=== PATIENT | female | born 1975 | race Caucasian/White ===

== ENCOUNTER 2016-10-01 07:19 | Day surgery (SDC) | payer MEDICARE, MEDICAID ==
[~2016-10-01 07:19] MED LIST: Dextrose 5%-Lactated Ringers 1,000 ML IV SCH; Midazolam 1 MG/ML 2 ML SDV ONE; Propofol 200 MG/20 ML SDV ONE; fentaNYL 100 MCG/2 ML SDV ONE
[2016-10-01] MEDS ORDERED: Glycopyrrolate 0.2 MG/ML 2 ML SYRINGE IVPUSH ONE (07:30)
[2016-10-01 11:36] VITALS: BP 106/77
--- NOTE | 2016-10-08 10:45 | OR ---
DATE OF PROCEDURE: 10/01/2016 PREOPERATIVE DIAGNOSIS: Dysphagia associated with weight regain, status post Lawrence-en-Y gastric bypass. 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 OPERATIVE PROCEDURE: Upper gastrointestinal endoscopy with dilation gastrojejunostomy (02943). ANESTHESIA: IV sedation. INDICATION FOR PROCEDURE: This is a 41-year-old status post a Lawrence-en-Y gastric bypass done as an open approach by Dr. Enrique in the . The patient has had a complicated postoperative course including intraabdominal abscess. Recently, the patient has had both problems with some weight regain as well as dysphagia. She has undergone 2 upper GI endoscopy with dilation as per the GI people in [place] and was recently referred here for further evaluation and treatment. To evaluate the patient's pouch size, which I suspect will be quite large and contributing to her problems in turns of high acid output as well as a degree of stricturing of the gastrojejunostomy with upper GI endoscopy with biopsies and/or dilation is to be undertaken. Potential risks including bleeding and perforation were discussed, and the patient wishes to proceed. DETAILS OF PROCEDURE: The patient was taken to the operating room and placed in a left lateral decubitus position. IV sedation was administered, after which the upper GI endoscope was passed orally through the length of the esophagus into the gastric pouch and from there through the gastrojejunostomy roughly 20 cm into the Lawrence limb. Findings included normal hypopharynx, larynx, upper esophageal sphincter. At the EG junction, there was some generalized reddening and edema consistent with the patient's history of reflux. The gastric pouch was itself generally slightly reddened. There was quite a bit of edema at the gastrojejunostomy along with a very mild stricture present. The pouch was measured at 11 cm from the gastrojejunostomy to the mucosal esophageal gastric junction. The scope was able to be passed through the anastomosis, which was in the most minimally strictured and the remaining portion of the visualized Lawrence limb was unremarkable. There were no marginal ulcers present. At this point, the gastrojejunostomy was dilated with a 54-Lithuanian balloon dilator. This did result in some slight increase in the diameter. No complications were noted and the procedure was then concluded. It would appear that the patients overall problems at this point are related to the very large pouch and aassociated mass increasing her acid output to a point that she is having both reflux symptoms as well as problems with inflammation at the gastrojejunostomy resulting in stricturing. She is status post truncal vagotomy, which was done routinely at that time per Dr. Enrique and this may also somehow be contributing to some impaired gastric emptying. The patient was taken to the recovery room in satisfactory condition. Postoperatively, after the patient had a long with her significant other discussing the result. We discussed this last week that if the pouch was noted to be quite large, the appropriate treatment would likely be open laparotomy with partial gastrectomy and Lawrence-en-Y reconstruction removing all the small amount of the gastric pouch present and do a fairly large anastomosis. Potential risks of that were all reviewed once again, and they wished to proceed. This procedure will be scheduled as soon as I get back from vacation on 10/19/2016. Kael Franklin MD /[id number]
== END 2016-10-01 11:20 | disposition home or self-care (01) ==
LOC: JP.SDS 07:19
PROVIDERS: ATTEND Surgery
PROC: 0D768ZZ Dilation of Stomach, Via Natural or Artificial Opening Endoscopic (ICD-10-PCS; principal; 2016-10-01)
DX: K91.89 Other postprocedural complications and disorders of digestive system (principal); Z98.84 Bariatric surgery status
CPT/HCPCS: 43245; J2250; J2704; J3010; J7042

== ENCOUNTER 2016-10-19 13:25 | Inpatient (IN) | payer MEDICARE, MEDICAID ==
[2016-10-23] MEDS: Gabapentin 300 MG Cap PO ONE ×2 (10:54→10:55)
[2016-10-23] MEDS ORDERED: Dextrose 5%-Lactated Ringers 1,000 ML IV SCH ×2 (11:00→17:15)
[2016-10-23] MEDS: Celecoxib 200 MG Cap PO ONE ×2 (11:00→19:30)
[2016-10-23] MEDS ORDERED: Scopolamine 1.5 MG Transdermal Patch TRDERM SCH (11:00)
[2016-10-23] MEDS ORDERED: Meropenem 500 MG SDV ONE (11:02)
[2016-10-23] MEDS ORDERED: Ketamine 500 MG/5 ML MDV IV SCH (12:00)
[2016-10-23] MEDS ORDERED: Ropivacaine 40 ML, Dexamethasone 8 MG, EPINEPHrine 0.4 MG, Sodium Chloride 0.9% 37.6 ML NERVRT SCH ×4 (12:00)
[2016-10-23] MEDS ORDERED: Propofol 200 MG/20 ML SDV ONE (12:15)
[2016-10-23] MEDS ORDERED: Ondansetron 4 MG/2 ML SDV ONE (12:15)
[2016-10-23] MEDS ORDERED: Dexamethasone 4 MG/ML SDV ONE (12:15)
[2016-10-23] MEDS ORDERED: Succinylcholine/Normal Saline 200 MG/10 ML Syringe ONE (12:15)
[2016-10-23] MEDS ORDERED: fentaNYL 250 MCG/5 ML SDV ONE (12:15)
[2016-10-23] MEDS ORDERED: Rocuronium 50 MG/5 ML Vial ONE (12:15)
[2016-10-23] MEDS ORDERED: Neostigmine Methylsulfate 1 MG/ML 5 ML Syringe ONE (12:16)
[2016-10-23] MEDS ORDERED: Lactated Ringers 1,000 ML ONE ×2 (12:18→15:28)
[2016-10-23] MEDS ORDERED: Naloxone 0.4 MG/ML SDV IVPUSH PRN (12:23)
[2016-10-23] MEDS ORDERED: HYDROmorphone/Normal Saline 15 MG/30 ML PCA IV PRN (12:23)
[2016-10-23] MEDS ORDERED: Lidocaine 2% 100 MG/5 ML Syringe IVPUSH ONE (13:30)
[2016-10-23] MEDS ORDERED: Midazolam 1 MG/ML 2 ML SDV ONE (14:01)
[2016-10-23] MEDS: cefOXitin 2 GM in Sodium Chloride 0.9% 50 ML IV ONE ×2 (14:41→19:30)
[2016-10-23] MEDS ORDERED: Naloxone 0.4 MG/ML SDV ONE (16:38)
[2016-10-23] MEDS ORDERED: Acetaminophen 1,000 MG in Premix Bag 1 BAG IV ONE (17:00)
[2016-10-23] MEDS ORDERED: Ondansetron 4 MG/2 ML SDV IVPUSH PRN (17:11)
[2016-10-23] MEDS ORDERED: SCOPOLAMINE PATCH ASK TOP SCH (17:11)
[2016-10-23] MEDS ORDERED: Labetalol 20 MG/4 ML Syringe IVPUSH PRN (17:11)
[2016-10-23] MEDS ORDERED: Metoclopramide 10 MG/2 ML SDV IV PRN (17:19)
[2016-10-23] MEDS ORDERED: diphenhydrAMINE 50 MG/ML SDV IV PRN (17:20)
[2016-10-23] MEDS: hydrOXYzine HCl 50 MG/ML SDV IM PRN (17:32)
[2016-10-23] MEDS: Lidocaine 0.4%/D5W 2 GM/500 ML BAG IV SCH (18:29)
[2016-10-23] MEDS: Dextrose 5%-Lactated Ringers 1,000 ML IV SCH (18:30)
[2016-10-23] MEDS: MVI, Adult with Vitamin K 10 ML, Thiamine 200 MG, Chromium/Copper/Mang/Selen/Zn 1 ML in... IV SCH ×4 (19:59)
[2016-10-23] MEDS ORDERED: Meperidine PF 100 MG/ML Syringe IM ONE (20:28)
[2016-10-23] MEDS ORDERED: hydrOXYzine HCl 50 MG/ML SDV IM ONE (20:28)
[2016-10-23] MEDS: cefOXitin 2 GM in Sodium Chloride 0.9% 50 ML IV SCH (20:35)
[2016-10-23] MEDS: Pantoprazole 40 MG Vial IVPUSH SCH (20:36)
[2016-10-23] MEDS: Heparin Sodium 5,000 Units/ML Vial SUBCUT SCH (20:36)
[2016-10-23] MEDS: Gabapentin 250 MG/5 ML Solution ML 470 ML Bottle PO SCH (20:41)
[2016-10-24] MEDS: Acetaminophen Soln 650 MG/20.3 ML UD Cup PO SCH ×5 (00:09→23:03)
[2016-10-24] MEDS: Dextrose 5%-Lactated Ringers 1,000 ML IV SCH (01:41)
[2016-10-24] MEDS: cefOXitin 2 GM in Sodium Chloride 0.9% 50 ML IV SCH ×4 (02:27→20:57)
[2016-10-24] MEDS ORDERED: Iohexol 647 MG/ML 50 ML SDV PO STA (03:08)
[2016-10-24] MEDS: Lidocaine 0.4%/D5W 2 GM/500 ML BAG IV SCH (05:29)
[2016-10-24] MEDS: Heparin Sodium 5,000 Units/ML Vial SUBCUT SCH ×2 (08:54→20:58)
[2016-10-24] MEDS: Celecoxib 200 MG Cap PO SCH (08:56)
[2016-10-24] MEDS: Gabapentin 250 MG/5 ML Solution ML 470 ML Bottle PO SCH ×3 (08:57→20:57)
[2016-10-24] MEDS: SCOPOLAMINE PATCH CHECK TOP SCH (09:12)
[2016-10-24] MEDS: MVI, Adult with Vitamin K 10 ML, Thiamine 200 MG, Chromium/Copper/Mang/Selen/Zn 1 ML in... IV SCH ×4 (15:25)
[2016-10-24] MEDS: hydrOXYzine HCl 25 MG Tab PO PRN (20:57)
[2016-10-24] MEDS: Pantoprazole 40 MG Vial IVPUSH SCH (20:58)
[2016-10-25] MEDS: cefOXitin 2 GM in Sodium Chloride 0.9% 50 ML IV SCH ×3 (01:41→13:24)
[2016-10-25] MEDS: Dextrose 5%-Lactated Ringers 1,000 ML IV SCH (01:43)
[2016-10-25] MEDS: hydrOXYzine HCl 50 MG/ML SDV IM PRN (03:57)
[2016-10-25] MEDS: Acetaminophen Soln 650 MG/20.3 ML UD Cup PO SCH ×4 (05:40→23:34)
[2016-10-25] MEDS: Heparin Sodium 5,000 Units/ML Vial SUBCUT SCH ×2 (08:28→20:17)
[2016-10-25] MEDS: Gabapentin 250 MG/5 ML Solution ML 470 ML Bottle PO SCH ×3 (08:29→20:16)
[2016-10-25] MEDS: Celecoxib 200 MG Cap PO SCH (08:29)
[2016-10-25] MEDS: SCOPOLAMINE PATCH CHECK TOP SCH (08:30)
[2016-10-25] MEDS ORDERED: Cyanocobalamin (Vitamin B12) 1,000 MCG/ML SDV IM ONE (09:00)
[2016-10-25] MEDS: Acetaminophen/oxyCODONE 325-5 MG Tab PO PRN ×4 (11:14→23:48)
[2016-10-25] MEDS ORDERED: Dextrose 5%-Lactated Ringers 1,000 ML IV SCH (11:45)
[2016-10-25] MEDS: hydrOXYzine HCl 25 MG Tab PO PRN (12:33)
[2016-10-25] MEDS: MVI, Adult with Vitamin K 10 ML, Thiamine 200 MG, Chromium/Copper/Mang/Selen/Zn 1 ML in... IV SCH ×4 (16:29)
[2016-10-25] MEDS: Pantoprazole 40 MG Vial IVPUSH SCH (20:13)
[2016-10-26] MEDS: hydrOXYzine HCl 25 MG Tab PO PRN ×3 (02:07→11:29)
[2016-10-26] MEDS: Acetaminophen/oxyCODONE 325-5 MG Tab PO PRN ×3 (03:59→12:32)
[2016-10-26] MEDS: Acetaminophen Soln 650 MG/20.3 ML UD Cup PO SCH (05:23)
[2016-10-26] MEDS: Celecoxib 200 MG Cap PO SCH (08:29)
--- NOTE | 2016-10-26 10:18 | CR ---
UGI wo KUB HISTORY: Prior bypass. COMPARISON: None FINDINGS: Postoperative gastric bypass. Surgical drains present. No extravasation of contrast adjace nt to the small gastric remnant. Small bowel is opacified with contrast no obstruction.
[2016-10-26 11:05] VITALS: BP 115/65
[2016-10-26] MEDS ORDERED: Scopolamine 1.5 MG Transdermal Patch TOP ONE (12:00)
[2016-10-26] MEDS ORDERED: Magnesium Hydroxide 400 MG/5 ML Susp 30 ML Cup PO ONE (12:00)
--- NOTE | 2016-10-26 14:47 | PN ---
DATE OF SERVICE: 10/24/2016 The patient had a T-max of 100.8, otherwise vital signs have been stable. She does have some pain issues, but this appears to be resolving as we fine tune things during the night, and pain control appears to be reasonable at this point. Otherwise, upper GI x-ray looks good and we will begin a step II no solid diet today and bank on her IV rate, otherwise maximize activity and work with pulmonary toilet. Kael Franklin MD /[id number]
--- NOTE | 2016-10-26 14:47 | PN ---
DATE OF SERVICE: 10/25/2016 The patient has been afebrile with stable vital signs. Overall, she is doing well. She had over 4 L of oral intake so I think were playing some catch up in terms of nutritional status. We will turn the IV to keep open, as the urine output is likewise quite high. I think she has a little bit too much in the way of discomfort to go to oral pain medication as of yet, and we will continue the COVER ASSEMBLER along with the other adjuvant pain control agents, and have her get in the shower today. She is up and walking nicely. Kael Franklin MD /[id number]
--- NOTE | 2016-10-27 02:14 | DISCH ---
ADMISSION DIAGNOSES: 1. Dysphagia associated with weight regain. 2. SP Lawrence-en-Y gastric bypass surgery. DISCHARGE DIAGNOSIS: Exploratory laparotomy with lysis of adhesion and partial gastrectomy, Lawrence-en-Y and takedown of gastrostomy for severe GERD related to very large gastric pouch, partial gastrectomy portion gastric pouch clearly adherent to pancreatic neck stricture gastrostomy. HISTORY: Chloe Diggs is a 41-year-old female status post Lawrence-en-Y gastric bypass done as an open approach by Dr. Laws in the . She has had dysphagia associated with weight regain. After preoperative discussion of possible risks and possible complications, she wished to proceed with surgical procedure. HOSPITAL COURSE: Chloe had her surgery on 10/23/2016. She had no operative complications. On postop day #1, her upper GI was normal and she was advanced to step 1 gastric bypass diet. On postop day #2, she was advanced to step 2 gastric bypass diet. Her pain was managed with Percocet, Celebrex, and nausea was managed with scopolamine patch. On postop day #3, she was able to be discharged to home. She had adequate education. Vital signs were stable and she received B12 1000 mcg on postop day 2. PHYSICAL EXAMINATION: GENERAL: Chloe Diggs is a 41-year-old female. Height is 5 feet 7 inches. Weight is 176 pounds. TPR is 98.7, 75, 18. HEENT: Negative. NECK: Supple. HEART: Regular rate and rhythm. LUNGS: Clear. ABDOMEN: Nakul intact, 4x4s over LORE drain sites. Abdominal binder is on. EXTREMITIES: Without peripheral edema. DISPOSITION: Discharged to home. CONDITION: Stable and improving. FOLLOWUP: With Tuyet Spears PA-C, 11/03/2016 at 9:00 a.m. HOME MEDICATIONS: Tylenol 650 mg q.6 hours liquid p.r.n. pain; Percocet 5/325 mg 1 to 2 every 4 hours p.r.n. pain #50; Celebrex 200 mg oral daily #14; hydroxyzine; Atarax 100 mg q.4 hours p.r.n. #30 in adjunct to pain. She is to resume taking her home medications, which include several supplements. She was also given scopolamine patch prescription, 1.5 mg every 72 hours. DISCHARGE DIET: Drink 8 to 10 glasses of water a day. Step-2 gastric bypass diet without cereal. ACTIVITY: No lifting greater than 10 pounds for 6 weeks. Walk inside your home 8 times daily. Driving after discharge: Do not drive on pain medication. May shower. Notify provider if any fever, increased pain, nausea, or vomiting. Keep site clean and dry. Wear abdominal binder for 6 weeks and then as tolerated. SPECIAL INSTRUCTION: Use incentive spirometer 10 times every hour while awake for 2 weeks. We do recommend starting a complete multivitamin twice a day and B12 1000 mcg sublingual daily.
--- NOTE | 2016-10-30 10:21 | OR ---
DATE OF PROCEDURE: 10/23/2016 PREOPERATIVE DIAGNOSIS: Severe gastroesophageal reflux disease related to very large gastric pouch and partial gastric outlet obstruction, status post previous Lawrence-en-Y gastric bypass. POSTOPERATIVE DIAGNOSES: 1. Severe gastroesophageal reflux disease related to very large gastric pouch and partial gastric outlet obstruction, status post previous Lawrence-en-Y gastric bypass. 2. A portion of gastric pouch densely adherent to pancreatic neck. 3. Previous gastrostomy. OPERATIVE PROCEDURE: Exploratory laparotomy with lysis of adhesions. a. Partial gastrectomy with Lawrence-en-Y gastrojejunostomy (93683). b. Pancreatorrhaphy (57521). c. Takedown of previous gastrostomy (36782). ANESTHESIA: General. DATA CONTROL CLERK: Tuyet Spears PA-C. INDICATIONS FOR PROCEDURE: This is a 41-year-old female status post previous Lawrence-en-Y gastric bypass. She has had problems with severe reflux disease, which has been documented by means of esophageal pH monitoring. Recent endoscopy showed a very large gastric pouch with gastric bypass that had been done in late . There is also patent gastrojejunostomy, but this appeared to be quite edematous and appeared to probably present as somewhat of a partial gastric outlet obstruction as well. The plan is proceed with a resection of the present gastric pouch and reconstruction with a very small pouch to alleviate the high volume resulting in reflux disease as well as alleviating the gastric outlet obstruction by means of resection of that area. Potential risks of the procedure including bleeding, infection, injury to underlying viscera, possibility of persistent recurrent symptoms over time as above as well as possibility of leaks from various GI tract closures, bowel obstruction over time, and lastly remote possibility of cardiopulmonary, septic, or hemorrhagic complications leading to were discussed, and the patient wishes to proceed. DETAILS OF PROCEDURE: The patient was taken to the operating room, and after general endotracheal anesthesia was induced, a Zacarias catheter was inserted. Subsequently, an Yoselyn tube was passed for anesthesia to help identify the course of the gastric pouch gastrojejunostomy. After induction of the anesthetic, bilateral transversus abdominis plane blocks were placed. These were subcostal blocks injecting 40 mL of saline on each side. Continue ropivacaine, epinephrine, and dexamethasone. These blocks were placed under continuous ultrasound guidance, and upon the conclusion, the abdomen was then prepped and draped. The previous midline incision was made and carried down through the skin and subcutaneous tissue and through the fascia. Upon entering the peritoneal cavity, adhesions were taken down and eventually the anatomy was delineated. The patient at this point was noted to have a relatively short biliopancreatic limb of around 30 cm and the Lawrence limb measured at approximately 100 cm. The Yoselyn tube was then placed per anesthesia, which allowed delineation of the previous gastric bypass and gastrojejunostomy. The area of the esophagogastric junction was then identified and the stomach perhaps a centimeter below that encircled, and at that point, the ribs for division of the stomach and creation of the new gastric pouch. Attention was then taken to dissection from beginning of the infracolic area. The patient had a retrocolic retrogastric Lawrence limb. This was eventually dissected out inferiorly and then above the colon and underneath the previous bypassed stomach. The small bowel was then divided, more or less flushed with the gastrojejunostomy with the REBECA stapler, and the underlying remaining small bowel mesentery was divided with REBECA daniela, and at that point, the Yoselyn tube was removed and the proximal gastric staple line was initiated to limit problems with recurrent stricturing and relatively large gastrojejunostomy was entirely fashioned here. Given this, an anvil of a 28 EEA stapler was passed into the gastric pouch and then positioned in a point just above the intended staple line. The new gastric pouch staple line was then accomplished with 2 firings of the REBECA black loads and the anvil then brought out through the staple line leaving the patient a new gastric pouch with length of about a centimeter. The remaining vascular attachments to the bypass portion of the stomach were then gradually dissected free and divided with Harmonic scalpel or daniela. The gastric pouch was densely adherent to the pancreas, and as this was dissected free, the portion of the pancreatic capsule was disrupted, but not to a point anywhere close to where there would be a major pancreatic ductal injury. Eventually, the stomach was then delivered from the field. The patient had a previous gastrostomy to the bypass portion of the stomach to facilitate ongoing dissection that had been divided and flushed with the abdominal wall and that portion of the gastric wall excised with a REBECA stapler and sent as a separate specimen as well. The pancreatic capsule was then reapproximated with some 3-0 Vicryl stitch and then with 4 mL of fibrin sealant. The divided end of the Lawrence limb was then mobilized of some adhesions. This came up out through an antecolic-antegastric fashion and again measured around 100 cm. This was brought up to the anvil without tension and divided end of the Lawrence limb was opened and the main body of the EEA stapler brought up through the anterior mesenteric border of the small bowel just proximal to the opening, connected the anvil, thus creating the gastrojejunostomy. Upon removal of the stapler, double donuts of mucosa were noted small bowel was closed off with a vascular staple line. Gastrojejunostomy was then reinforced with some 3-0 Vicryl seromuscular stitch along with fibrin sealant. At this point, no further problems were noted. The previous mesenteric defect through the transverse mesocolon was approximated with some 2-0 silk stitch, and at this point, no further problems were noted. The abdomen was irrigated with antibiotic-containing saline solution. Two Herber-Aguilar drains were then placed through stab wounds in the left subcostal area, placed adjacent to the gastrojejunostomy. It was notable that the patient did not have any significant identifiable hiatal hernia during the course of the dissection and the midline fascia was then approximated with #2 Vicryl stitch. The subcutaneous tissue was drained with a 15- Sami round Herber-Aguilar drain, it was brought through a stab wound inferior to the main incision, and the incision then closed with 2 layers of 3-0 Vicryl stitch deep and then daniela for the skin. Drains were sutured to skin with some 4-0 Vicryl stitch and the skin was closed with daniela. The patient was taken to the recovery room in satisfactory condition. Physician assistant professor of geography, Tuyet Spears, played an essential role in assisting in this case, helping position the patient, retract structures as needed, as well as suturing and cutting sutures when indicated. Her presence improved the patient's safety and decreased operative time. Kael Franklin MD /[id number]
== END 2016-10-26 12:45 | disposition home or self-care (01) | DRG 328 ==
LOC: EDSTATUS 10-23 09:00 → JP.SDS 10-23 10:09 → JP.SDSSCHI 10-23 10:09 → JP.2SS 10-23 17:08
PROVIDERS: ADMIT Surgery; ATTEND Surgery
PROC: 0D160ZA Bypass Stomach to Jejunum, Open Approach (ICD-10-PCS; principal; 2016-10-23)
PROC: 0FNG0ZZ Release Pancreas, Open Approach (ICD-10-PCS; principal; 2016-10-23)
PROC: 0DB60ZZ Excision of Stomach, Open Approach (ICD-10-PCS; principal; 2016-10-23)
PROC: 0DN60ZZ Release Stomach, Open Approach (ICD-10-PCS; principal; 2016-10-23)
DX: K31.1 Adult hypertrophic pyloric stenosis (principal); K21.0 Gastro-esophageal reflux disease with esophagitis; R13.10 Dysphagia, unspecified; R63.5 Abnormal weight gain; Z68.28 Body mass index [BMI] 28.0-28.9, adult; Z98.84 Bariatric surgery status; Z98.0 Intestinal bypass and anastomosis status; Z91.040 Latex allergy status; Z88.2 Allergy status to sulfonamides; Z91.011 Allergy to milk products; Z91.018 Allergy to other foods; Z91.048 Other nonmedicinal substance allergy status
CPT/HCPCS: 36415; 74240; 74240-26; 82962; 86850; 86900; 86901; 88307; 94762; A9270-GY; C9113; J0131; J0171; J0694; J1100; J1170; J1644; J2001; J2175; J2185; J2250; J2310; J2405; J2704; J2795; J3010; J3410; J3411; J3420; J7030; J7042; J7050; J7120; Q9967